=== PATIENT | male | born 1985 | race Two or more races ===

== ENCOUNTER → 2023-12-26 | Emergency (ER) | payer OTHER ==
[~2023-12-26] VITALS: Ht 170.2 cm; Wt 68.0 kg
[~2023-12-26] MED LIST: CEFTRIAXONE SODIUM 1,000 MG VIAL IM ONE; CIPRO500 MG PO; TETANUS & DIPHTHERIA TOX,ADULT 0.5 ML VIAL IM ONE
== END | disposition home or self-care (01) ==
LOC: ER 12:46
DX: S61.012A Laceration without foreign body of left thumb without damage to nail, initial encounter (principal); W45.8XXA Other foreign body or object entering through skin, initial encounter; Y93.89 Activity, other specified; Y92.89 Other specified places as the place of occurrence of the external cause; Y99.9 Unspecified external cause status